=== PATIENT | male | born 1980 ===

== ENCOUNTER 2017-02-09 11:57 | Inpatient (IN) ==
[~2017-02-09 11:57] MED LIST: ACETAMINOPHEN 325 MG TABLET PO PRN; DEXTROSE 50% 25 GM/50 ML VIAL IV PRN; GLUCAGON 1 MG VIAL IM PRN; ONDANSETRON 4 MG/2 ML VIAL IV PRN
[2017-02-09] MEDS ORDERED: SODIUM CHLORIDE 0.45% 1,000 ML IV SCH (12:00)
[2017-02-09 13:02] LABS: Basophils % 0.1 % (0.0-0.8); Eosinophils % 0.2 % (0.00-10.9); Hematocrit 27.7 VOL% (42.0-52.0); Hemoglobin 9.7 GM/DL (14.0-18.0); Immature Granulocytes % 0.9 %; Immature Granulocytes Absolute 0.07 #; Lymphocytes # 0.5 10*3/uL (1.4-4.0); Lymphocytes % 5.5 % (21.2-54.2); Mean Corpuscular Hemoglobin 31 PG (27-34); Mean Corpuscular Volume 87.7 FL (87-102); Mean Platelet Volume 11.6 FL (9.6-12.0); Monocytes # 0.2 10*3/uL (0.11-0.8); Monocytes % 2.6 % (1.7-12.7); Neutrophils # 7.4 10*3/uL (1.4-7.4); Neutrophils % 90.7 % (38.7-73.9); Platelet Count 153 T/CUMM (130-400); Red Blood Count 3.16 MC/CUMM (3.8-5.5); Red Cell Distribution Width 11.9 % (9.3-17.3); White Blood Count 8.1 T/CUMM (4-12)
[2017-02-09 13:42] LABS: Alanine Aminotransferase 18 U/L (16-61); Albumin 2.2 G/DL (3.4-5.0); Alkaline Phosphatase 170 U/L (45-117); Aspartate Amino Transferase 15 U/L (0-37); Bilirubin,Total < 0.39 MG/DL (0.2-1.0); Blood Urea Nitrogen 41 MG/DL (7-18); Calcium 7.3 MG/DL (8.5-10.1); Osmolality,Calculated 297.8 MOS/KG (273-304); Potassium 4.2 MMOL/L (3.5-5.1); Sodium 130 MMOL/L (136-145); Total Protein 5.2 G/DL (6.4-8.3)
[2017-02-09 13:49] LABS: Glucose 600 MG/DL (74-106)
[2017-02-09] MEDS ORDERED: INSULIN LISPRO 100 UNIT/ML SUBCUT ONE ×2 (14:23→14:31)
[2017-02-09] MEDS ORDERED: SODIUM CHLORIDE 0.9% 1,000 ML IV ONE (14:23)
[2017-02-09] MEDS: INSULIN NPH 100 UNIT/ML SUBCUT SCH ×2 (15:34→17:02)
--- NOTE | 2017-02-09 15:35 | General Surg History&Physical ---
Assessment and Plan - Time spent with patient Time spent with patient: Less than 30 minutes (1) Necrotizing fasciitis Status: Acute Assessment and plan: Necrotizing fasciitis of the perineum and left groin with blistering and obvious tissue loss. By history, this has advanced since he was seen at the [facility] emergency room last evening and he has now hyperglycemic with glucoses in the 500-600 range and blood pressure low normal. This appears to be aggressive and progressing infection, and he needs OR debridement this evening in order to get control of this serious infection. We will plan to take him to surgery tonight and open/drain the area with debridement of nonviable tissue. Dr. Carlin has discussed this with the patient and his significant other, including the fact that this will leave a significant skin defect in this area. Current Visit: Yes (2) Uncontrolled diabetes mellitus Status: Acute Assessment and plan: Type 2 diabetes uncontrolled. Appreciate hospital medicine assistance in helping us with aggressive lowering his glucose and postop management. This is a very serious and progressive infection, and we should see improvement once we can get the area drained and the necrotic tissue removed. Current Visit: Yes Qualifiers: Diabetes mellitus type: type 2 (3) Acute renal failure Status: Acute Assessment and plan: Again, will appreciate hospital medicine helping us follow and manage. We will get pharmacy and therapeutics to help with renal dosing and watch his trends once we get the infection under control; he may need nephrology consult as well , as we do not know what his baseline renal function was pre-infection. Current Visit: Yes History of Present Illness Chief complaint: Abscess of the perineum History of present illness: Mr. Rivas is a 36 year old male Home Medications Medication Instructions Recorded Confirmed Type Insulin Aspart [NovoLOG FlexPen] 5 unit SUBCUT TID W/MEALS 08/03/16 02/09/17 History Insulin Detemir [Levemir FlexPen] 35 unit SUBCUT BEDTIME 08/03/16 02/09/17 History glipiZIDE [Glipizide Xl] 10 mg PO DAILY 08/03/16 02/09/17 History Aspirin EC Tab 81 mg PO DAILY tablet 08/06/16 02/09/17 Rx Carvedilol [Coreg] 3.125 mg PO BID tablet 08/06/16 02/09/17 Rx Gabapentin Cap/Tab [Neurontin 100 mg PO BEDTIME capsule 08/06/16 02/09/17 Rx Cap/Tab] Lisinopril [Prinivil] 10 mg PO DAILY tablet 08/06/16 02/09/17 Rx Simvastatin [Zocor] 20 mg PO BEDTIME tablet 08/06/16 02/09/17 Rx Allergies Allergy/AdvReac Type Severity Reaction Status Date / Time No Known Allergies Allergy Unverified 08/03/16 17:57 Medical,Surgical,& Family Hx - Medical History Cardio: History of: Hypertension Endocrine: History of: Diabetes Mellitus (IDDM) Other: History of: Skin Problems (skin graft to Left leg 8 years ago) - Surgical History Thoracic Surgeries: Patient denies;: Organ Transplant, Lobectomy Neurologic Surgeries: Patient denies: Neurologic Surgery - Family History Family History: Reports;: Family Diabetes, Family Heart Disease - Social History Smoking Status: Smoker, status unknown Frequency of Alcohol Use: None Type of Drug Use: None Exam - Constitutional Vitals: Period Temp Pulse Resp BP Sys/Herron Pulse Ox Last 24 Hr 97.5 F 88 16 90-99/45-60 99 General appearance: mild distress - Head Head exam: Present: normocephalic - Eye Eye exam: Present: EOMI. Absent: periorbital swelling Pupils: Present: ESTHER - ENT Mouth exam: Present: normal external inspection, normal voice, dry mucosa, other (No gross oral lesions noted.) - Neck Neck exam: Present: trachea midline. Absent: lymphadenopathy - Respiratory Respiratory exam: Present: clear to auscultation bilaterally - Cardiovascular Cardiovascular exam: Present: RRR - GI/Abdominal GI/Abdominal exam: Present: hypoactive bowel sounds, soft. Absent: tenderness - Anus/Rectum Anus/Rectum: other (Anus is normally positioned. To the left of the anal verge is mild induration and erythematous change that extends onto the perineum anteriorly toward the scrotum. This involves the base of the scrotum, perineum , and into the left groin, where there is a 1-2 cm indurated mass-effect, and approximately 10 x 4 cm grossly necrotic, foul-smelling indurated tissue present. There are small vesicles present on the surface. There is no localized area of fluctuance, but the entire devascularized area is slightly boggy.) Quality Measures - VTE Contraindication to Pharmacological VTE Prophylaxis: High Risk of Bleeding - Stroke Symptom Onset Unknown: No Results - Labs CBC & BMP: 02/09/17 12:51 02/09/17 14:23 Lab Results: I have reviewed the past 24 hour labs (H&H and POC glucose noted; creatinine elevated.)
[2017-02-09] MEDS: SODIUM CHLORIDE 0.9% 1,000 ML IV SCH (16:00)
[2017-02-09] MEDS ORDERED: LIDOCAINE 1%/EPI INJ 20 ML VIAL ONE (16:09)
[2017-02-09] MEDS ORDERED: BUPIVACAINE 0.25% 50 ML VIAL ONE (16:09)
--- NOTE | 2017-02-09 16:13 | Hospitalist Consult Note ---
<Bradley Ayala - Last Filed: 02/09/17 16:09> Assessment and Plan (1) Necrotizing fasciitis Status: Acute Assessment and plan: The has been seen and evaluated by surgery. OR debridement scheduled for tonight. Current Visit: Yes (2) Uncontrolled diabetes mellitus Status: Acute Assessment and plan: The patient's glucose levels were grossly elevated at the time of presentation; ranging from 500-600. We will obtain hemoglobin A1c, and start Accu-Cheks with sliding scale coverage. The patient reports usual medical compliance however; I feel that this is not the case. 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 We will gently rehydrate; and monitor blood pressures closely. We will hold all antihypertensive agents at this time. Current Visit: No Qualifiers: Hypertension type: essential hypertension Qualified Code(s): I10 - Essential (primary) hypertension History of Present Illness - Consult Narrative Reason for consult: Medical management History of present illness: This is a chronically ill 36-year-old male that presented to [facility] as a direct admission from Dr. Morrell's office for the evaluation of an abscess involving the perineum. The patient has an extensive medical history significant for hypertension, insulin-dependent diabetes mellitus, diabetic neuropathy, and hyperlipidemia. She has a surgical history significant for skin graft to the left lower leg. The patient reported the onset of the above symptoms 4 days prior to presentation. He noticed that he had a "bump" on his right buttocks. He reports that he watch the area carefully ; however he noted that the area started to extend and became painful. He attempted to manage the pain at home until it became unbearable. He presented to the [facility] this morning for further evaluation. He was seen and evaluated there and the ER physician Dr. Tyler contacted Dr. Soto's office to arrange evaluation. The patient was subsequently admitted as a direct admission under the services of Dr. Morrell for further evaluation. Hospital medicine was requested to assist in the medical management of the patient during the clinical encounter. CC: Shan Carlin MD - Home Medications and Allergies Home Medications: Home Medications Medication Instructions Recorded Confirmed Type Insulin Aspart [NovoLOG FlexPen] 5 unit SUBCUT TID W/MEALS 08/03/16 02/09/17 History Insulin Detemir [Levemir FlexPen] 35 unit SUBCUT BEDTIME 08/03/16 02/09/17 History glipiZIDE [Glipizide Xl] 10 mg PO DAILY 08/03/16 02/09/17 History Aspirin EC Tab 81 mg PO DAILY tablet 08/06/16 02/09/17 Rx Carvedilol [Coreg] 3.125 mg PO BID tablet 08/06/16 02/09/17 Rx Gabapentin Cap/Tab [Neurontin 100 mg PO BEDTIME capsule 08/06/16 02/09/17 Rx Cap/Tab] Lisinopril [Prinivil] 10 mg PO DAILY tablet 08/06/16 02/09/17 Rx Simvastatin [Zocor] 20 mg PO BEDTIME tablet 08/06/16 02/09/17 Rx Allergies/Adverse Reactions: Allergies Allergy/AdvReac Type Severity Reaction Status Date / Time No Known Allergies Allergy Unverified 08/03/16 17:57 Medical,Surgical,& Family Hx - Medical History Cardio: History of: Hypertension Endocrine: History of: Diabetes Mellitus (IDDM) Other: History of: Skin Problems (skin graft to Left leg 8 years ago) - Surgical History Thoracic Surgeries: Patient denies;: Organ Transplant, Lobectomy Neurologic Surgeries: Patient denies: Neurologic Surgery - Family History Family History: Reports;: Family Diabetes, Family Heart Disease - Social History Smoking Status: Smoker, status unknown Frequency of Alcohol Use: None Type of Drug Use: None 12 point system: reviewed and no additional remarkable complaints except as stated Exam - Constitutional Vitals: Period Temp Pulse Resp BP Sys/Herron Pulse Ox Last 24 Hr 97.5 F 88 16 90-99/45-60 99 General appearance: normal weight, no acute distress - Head Head exam: Present: normal inspection, normocephalic, atraumatic - Eye Eye exam: Present: EOMI Pupils: Present: ESTHER, normal accommodation - ENT ENT exam: Present: normal exam, normal external ear exam, normal oropharynx - Neck Neck exam: Present: normal inspection. Absent: lymphadenopathy, meningismus, tenderness, thyromegaly - Respiratory Respiratory exam: Present: clear to auscultation bilaterally. Absent: rales, rhonchi, stridor, wheezes - Cardiovascular Cardiovascular exam: Present: regular rate and rhythm. Absent: carotid bruit, diastolic murmur, gallop, JVD, rubs, systolic murmur - GI/Abdominal GI/Abdominal exam: Present: normal bowel sounds, soft, other (Gross edema noted extended from the right buttock involving the scrotum; multiple open areas noted with malodorous drainage) - Extremities Exam Extremities exam: Present: normal inspection, normal capillary refill, full ROM. Absent: edema (Edema noted to the right upper thigh) - Back Exam Back exam: Present: normal inspection - Neurological Exam Neurological exam: Present: alert, oriented X3, CN II-XII intact - Psychiatric Psychiatric exam: Present: normal affect, normal mood - Skin Skin exam: Present: normal color, warm, dry Results - Labs CBC & BMP: 02/09/17 12:51 02/09/17 14:23 Lab Results: I have reviewed the past 24 hour labs Quality Measures - VTE Contraindication to Pharmacological VTE Prophylaxis: High Risk of Bleeding - Stroke Symptom Onset Unknown: No <Clay Marie - Last Filed: 02/09/17 17:29> History of Present Illness - Consult Narrative History of present illness: Patient seen and examined by me independently of ASHELY Ayala, agree with history , assessment and plan as documented. Patient being admitted to the surgery service for abscess, plan is for surgery today. Glucoses elevated to 600s. Will start NPH 20 units BID and SSI. Thanks for the consult, will continue to follow. CC: Shan Carlin MD Exam - Constitutional Vitals: Period Temp Pulse Resp BP Sys/Herron Pulse Ox Last 24 Hr 97.5 F 88 16 90-99/45-60 99 Results - Labs CBC & BMP: 02/09/17 12:51 02/09/17 14:23
[2017-02-09 16:51] LABS: Band Neutrophils 15 % (0-10); Lymphocytes 9 % (20-55); Platelet Estimate Normal; Segmented Neutrophils 76 % (50-85); Total Cells Counted 100
[2017-02-09 16:52] LABS: Burr Cells Few; Poikilocytosis Slight
[2017-02-09] MEDS ORDERED: ONDANSETRON 4 MG/2 ML VIAL IV PRN ×2 (18:45→19:25)
[2017-02-09] MEDS ORDERED: CHLORHEXIDINE 4% SOLN 118 ML BOTTLE TOP ONE (18:53)
[2017-02-09] MEDS ORDERED: VANCOMYCIN (NICU) 1,000 MG in SYRINGE 1 EACH IV PRN (19:00)
--- NOTE | 2017-02-09 19:08 | Operative Note ---
Date of procedure: 02/09/17 Pre-op diagnosis: Abscess of the perineum Post-op diagnosis: other (Abscess peritoneum with extensive necrotizing fasciitis of the perineum and scrotum) Procedure: Operative note: Preoperative diagnosis: Abscess of the left perineum with extension to the scrotum and necrotic skin changes Postoperative diagnosis: Necrotizing fasciitis of the peritoneum and scrotum Procedure: Extensive excisional debridement of skin of the perineum and of the scrotum and of deep necrotic subcutaneous tissue as well as fascia of the scrotum Surgeon Dr. Carlin Mortgage Operations Manager Germania Christina, SOC[employer] ACNP Anesthesia General tracheal Brief history: 36-year-old diabetic male who described having a small tender bump area in the left perineal area on Thursday it got progressively worse and was seen Thursday and refused hospitalization at that time. He is given some Rocephin and then brought back to [facility] Thursday morning. This morning when we were called and asked to take patient in transfer because of extensive necrotic changes in his perineal area. When we saw that there was necrotic changes in the perineal area and by the time we got him to surgery there was changes at the base of the scrotum now. Procedure: With patient in the dorsolithotomy position prepped and draped in sterile fashion timeout and antibiotics completed approaches area of the scrotal perineal area. Had extensive necrotic looking tissue in the left perineal area that extended into the median raphae up towards the and into the scrotal area. I took a knife and made an incision through the skin subtenons tissue perineal area and found a large amount of some purulent material as well as necrotic fatty tissue and skin. I did take some swab cultures at this time and I begin to a do some extensive debridement of the necrotic skin around the perineal area and extended into the scrotum. This is continued to extend and progress out skin clinton with necrotic skin edges and the necrotic fatty tissue underneath. I continue to debride that necrotic fatty tissue in the base of this wound in the perineal area finding some deep extension towards the anal area at this point. I debrided as much as I could possibly get at this time leaving a large open wound and then use electrocauterization control any bleeding. I debrided until I thought I was around beyond the area of infection. I was trying to preserve some skin so I was taken some necrotic fatty tissue off the underside of the skin but this may compromise that at some point. At that time I then extended the incision up into the scrotal area and had begin to debride a lot of scrotal skin that was necrotic at this time. There was necrotic scrotal fascia and there and I carefully begin to debride that with the testicles almost completely exposed but not completely. I debrided under the scrotal skin and above it to try to get beyond this area of infection in the hopes that we would not have much more to do. We debrided until we had pretty clear his wounds and excellent drainage. We have now a large open scrotal area with the testicles almost exposed and extending wound that extends down towards the left gluteal perineal area. We now have a wound that measures 24 x 4 x 9 cm in size. At that point would begin to dress it with Dakin's with fluffs and bulky dressings and the like to take the patient to the ICU at this point. As extensive necrotizing fasciitis on this area and will have to get him extensive antibiotics as well as consider and see if we can get him to HBO therapy. Estimated blood loss 50-60 cc Sponge count correct 2 Drains none Complications none Condition critical but stable Anesthesia: ARSALAN Surgeon / Physician: Shan Carlin Mortgage Operations Manager: Germania Christina Estimated blood loss: other (50 cc) Specimens: other (Tissue for culture and pathology) Condition: critical Disposition: ICU Results - Labs CBC & BMP: 02/09/17 12:51 02/09/17 14:23 Discharge Plan - Discharge Medications No Action Insulin Aspart [NovoLOG FlexPen] 5 unit SUBCUT TID W/MEALS Insulin Detemir [Levemir FlexPen] 35 unit SUBCUT BEDTIME Carvedilol [Coreg] 3.125 mg PO BID tablet Gabapentin Cap/Tab [Neurontin Cap/Tab] 100 mg PO BEDTIME capsule Lisinopril [Prinivil] 10 mg PO DAILY tablet Simvastatin [Zocor] 20 mg PO BEDTIME tablet glipiZIDE [Glipizide Xl] 10 mg PO DAILY Aspirin EC Tab 81 mg PO DAILY tablet - Follow Up or Referral - Forms/Instructions
--- NOTE | 2017-02-09 19:15 | Anesthesia Post-Op ---
Anesthesia Post OP - Post Ansesthetic Evaluation Patient seen in post op: Yes Resp: within normal limits CV: within normal limits Mental: within normal limits Temp: within normal limits [id number]: within normal limits Nausea and Vomiting: within normal limits Pain: within normal limits
[2017-02-09] MEDS ORDERED: fentaNYL 100 MCG/2 ML VIAL ONE (19:23)
[2017-02-09] MEDS ORDERED: KETOROLAC 30 MG/1 ML VIAL ONE (19:23)
[2017-02-09] MEDS ORDERED: METOCLOPRAMIDE 10 MG/2 ML VIAL ONE (19:23)
[2017-02-09] MEDS ORDERED: MIDAZOLAM 2 MG/2 ML VIAL ONE (19:23)
[2017-02-09] MEDS ORDERED: ONDANSETRON 4 MG/2 ML VIAL ONE (19:23)
[2017-02-09] MEDS ORDERED: PROPOFOL 200 MG/20 ML VIAL IV ONE (19:24)
[2017-02-09] MEDS ORDERED: HYDROmorphone 2 MG/1 ML VIAL IV PRN (19:25)
[2017-02-09] MEDS ORDERED: LACTATED RINGERS 1,000 ML IV SCH (19:30)
[2017-02-09 19:33] LABS: Apearance,Urine Slightly Hazy (Clear); Bacteria,Urine Few /HPF (Few); Bilirubin,Urine Negative (Negative); Blood, Urine Moderate mg/dL (Negative); Glucose,Urine (UA) >=500 mg/dL (Negative); Ketones,Urine Negative (Negative); Nitrite,Urine Negative (Negative); Protein,Urine 100 MG/DL; RBC,Urine 1 /HPF (0-4); Squamous Epithelial Cell,Urine Occasional /HPF (0-10); Urine Color Yellow (Yellow); Urine Specific Gravity 1.015 (1.001-1.035); Urine Urobilinogen < 2.0 EU/DL (0.2-1.0); WBC,Urine 15 /HPF (0-6); White Blood Cell Casts,Urine 4 /LPF (<1)
[2017-02-09] MEDS: INSULIN LISPRO 100 UNIT/ML SUBCUT SCH ×2 (19:52→22:06)
[2017-02-09] MEDS ORDERED: VANCOMYCIN INJ 1,250 MG in SODIUM CHLORIDE 0.9% 250 ML IV ONE (20:00)
[2017-02-09] MEDS ORDERED: LEVOFLOXACIN INJ 500 MG in PREMIX 1 EACH IV ONE (20:00)
[2017-02-09 20:03] LABS: Hematocrit 24.9 VOL% (42.0-52.0); Hemoglobin 8.6 GM/DL (14.0-18.0)
[2017-02-09] MEDS: KETOROLAC 15 MG/1 ML VIAL IV SCH (20:48)
[2017-02-09] MEDS: DOCUSATE SODIUM 100 MG CAPSULE PO SCH (21:48)
[2017-02-09] MEDS ORDERED: SEVOFLURANE 1 UNIT/15 MINUTE INH ONE (23:22)
[2017-02-09] MEDS: PIPERACILLIN/TAZOBACTAM 3,375 MG in SODIUM CHLORIDE 0.9% 100 ML IV SCH (23:46)
[2017-02-10] MEDS: SODIUM CHLORIDE 0.9% 1,000 ML IV SCH ×4 (01:51→14:54)
[2017-02-10] MEDS: KETOROLAC 15 MG/1 ML VIAL IV SCH ×3 (03:25→14:06)
[2017-02-10] MEDS: PIPERACILLIN/TAZOBACTAM 3,375 MG in SODIUM CHLORIDE 0.9% 100 ML IV SCH ×3 (06:40→22:28)
[2017-02-10 06:43] LABS: Basophils % 0.3 % (0.0-0.8); Eosinophils % 0.5 % (0.00-10.9); Hematocrit 32.7 VOL% (42.0-52.0); Immature Granulocytes % 1.3 %; Lymphocytes # 0.9 10*3/uL (1.4-4.0); Lymphocytes % 11.7 % (21.2-54.2); Mean Corpuscular HGB Conc 34.6 GM/DL (32-36); Mean Corpuscular Hemoglobin 31 PG (27-34); Mean Corpuscular Volume 89.3 FL (87-102); Mean Platelet Volume 11.5 FL (9.6-12.0); Monocytes # 0.5 10*3/uL (0.11-0.8); Monocytes % 5.9 % (1.7-12.7); Neutrophils # 6.1 10*3/uL (1.4-7.4); Neutrophils % 80.3 % (38.7-73.9); Platelet Count 152 T/CUMM (130-400); Red Blood Count 3.66 MC/CUMM (3.8-5.5); Red Cell Distribution Width 12.5 % (9.3-17.3); White Blood Count 7.6 T/CUMM (4-12)
[2017-02-10 06:44] LABS: Hemoglobin 11.3 GM/DL (14.0-18.0)
[2017-02-10 07:02] LABS: Band Neutrophils 2 % (0-10); Burr Cells Slight; Eosinophils 2 % (0-10); Hypochromasia 1+; Lymphocytes 13 % (20-55); Platelet Estimate Adequate; Segmented Neutrophils 76 % (50-85); Total Cells Counted 100
[2017-02-10 07:29] LABS: Albumin 1.7 G/DL (3.4-5.0); Bilirubin,Total 0.4 MG/DL (0.2-1.0); Calcium 6.8 MG/DL (8.5-10.1); Magnesium 2.2 MG/DL (1.8-2.4); Osmolality,Calculated 287.7 MOS/KG (273-304); Phosphorous 2.9 MG/DL (2.5-4.9); Potassium 3.9 MMOL/L (3.5-5.1); Total Protein 4.5 G/DL (6.4-8.3)
[2017-02-10] MEDS ORDERED: VANCOMYCIN INJ 1,000 MG in SODIUM CHLORIDE 0.9% 250 ML IV PRN (08:00)
--- NOTE | 2017-02-10 08:03 | General Surgery Progress Note ---
Assessment and Plan - Time spent with patient Time spent with patient: Less than 30 minutes (1) Necrotizing fasciitis Status: Acute Assessment and plan: 02/10/2017. Patient's afebrile this morning glucose is down as well as an improvement in his creatinine to 2.5. Did transfuse him in the evening his hematocrit is 32 this morning. Vital signs are more stable at this point. At this time we will go ahead and get infectious disease looking for antibiotics planning at this time. We will also start wound care and see if we do have to go back to surgery for additional debridement. Cultures are pending at this time. I have consulted the wound center for possible HBO on him. Current Visit: Yes Subjective Patient reports: Present: no new complaints, feels better, tolerating liquids well, nausea, afebrile Exam - Constitutional Vitals: Period Temp Pulse Resp BP Sys/Herron Pulse Ox Last 24 Hr 97.5 F-99.3 F 80-107 11-21 81-130/38-65 95-100 General appearance: mild distress - Head Head exam: Present: normal inspection - ENT ENT exam: Present: normal exam - Neck Neck exam: Present: normal inspection - Respiratory Respiratory exam: Present: rales - Cardiovascular Cardiovascular exam: Present: RRR - GI/Abdominal GI/Abdominal exam: Present: hypoactive bowel sounds, soft - Anus/Rectum Anus/Rectum: other (Wound care beginning on the perineal scrotal area) - Back Exam Back exam: Present: normal inspection - Neurological Exam Neurological exam: Present: alert, oriented X3, CN II-XII intact - Skin Skin exam: Present: normal color, warm, dry Results - Labs CBC & BMP: 02/10/17 06:33 02/10/17 06:33 Lab Results: I have reviewed the past 24 hour labs Quality Measures - VTE Contraindication to Pharmacological VTE Prophylaxis: High Risk of Bleeding - Stroke Symptom Onset Unknown: No
--- NOTE | 2017-02-10 08:14 | EKG Report ---
Stationary ECG Study [facility] Test Date: 02/10/2017 6:51:10 AM Pat Name: SHAWN HENRIQUEZ Department: Room: 106 Gender: M Coper Hand: KEENAN : 1980 Requested by: Germania Christina Order Number: [id number] Reading MD: STEPH MASON Intervals [place] Rate: 82 P: 40 WA: 175 QRS: 51 QRSD: 94 T: 32 QT: 342 QTc: 381 Interpretive Statements SINUS RHYTHM Electronically Signed On 02-10-17 11:43:42 CDT by STEPH MASON [email or web address]
[2017-02-10] MEDS: SODIUM HYPOCHLORITE 0.25% IRRIG 473 ML BOTTLE TOP SCH (08:50)
[2017-02-10] MEDS: HYDROmorphone 2 MG/1 ML VIAL IV PRN (08:55)
[2017-02-10] MEDS: INSULIN NPH 100 UNIT/ML SUBCUT SCH (09:37)
[2017-02-10] MEDS: INSULIN LISPRO 100 UNIT/ML SUBCUT SCH ×4 (09:37→21:21)
[2017-02-10] MEDS: PANTOPRAZOLE 40 MG TABLET PO SCH (09:38)
[2017-02-10] MEDS: ENOXAPARIN 40 MG/0.4 ML SYRINGE SUBCUT SCH (09:38)
[2017-02-10] MEDS: DOCUSATE SODIUM 100 MG CAPSULE PO SCH ×2 (09:38→21:20)
[2017-02-10] MEDS ORDERED: INSULIN NPH 100 UNIT/ML SUBCUT SCH (09:59)
--- NOTE | 2017-02-10 10:03 | Hospitalist Progress Note ---
Assessment and Plan (1) Acute renal failure Status: Acute Assessment and plan: 1)KAREN- improving with IVF. Continue with NS at 150 for now and watch creatinine. 2)uncontrolled DM- glucose now 169 this morning. Decrease NPH to 10U BID and continue with SSI. May need more as his diet advances. 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 He is on a clear liquid diet. He takes 2 kinds of insulin at home he says but doesn't know how much or what kinds. He does not have nausea or vomiting. Exam - Constitutional Vitals: Period Temp Pulse Resp BP Sys/Herron Pulse Ox Last 24 Hr 97.5 F-99.3 F 80-107 11-21 81-130/38-65 95-100 General appearance: normal weight, no acute distress - Respiratory Respiratory exam: Present: clear to auscultation bilaterally - Cardiovascular Cardiovascular exam: Present: regular rate and rhythm Results - Labs CBC & BMP: 02/10/17 06:33 02/10/17 06:33 Lab Results: I have reviewed the past 24 hour labs Quality Measures - VTE Contraindication to Pharmacological VTE Prophylaxis: High Risk of Bleeding - Stroke Symptom Onset Unknown: No
[2017-02-10] MEDS: CLINDAMYCIN INJ 600 MG in PREMIX 1 EACH IV SCH ×2 (10:20→16:38)
[2017-02-10 10:53] LABS: Hematocrit 31.1 VOL% (42.0-52.0); Hemoglobin 10.9 GM/DL (14.0-18.0)
--- NOTE | 2017-02-10 15:06 | XRay Report ---
XR chest 1V portable Indication: Postoperative necrotizing fasciitis Comparison: September 2008 Findings: The heart and mediastinum are normal in size and configuration. The pulmonary vascularity is normal in caliber. No lung infiltrates, effusions, pneumothorax or other abnormality is demonstrated. Impression: Normal chest x-ray PROCEDURE INTERPRETED AT [facility] DEPARTMENT OF RADIOLOGY Final Report Signed by: Dr. Nir Christiansen
--- NOTE | 2017-02-10 15:37 | Infectious Disease Consult ---
Assessment and Plan (1) Acute renal failure Status: Acute Assessment and plan: Probably associated sepsis. Renal function somewhat better today. Continue to watch closely on vancomycin. Current Visit: Yes (2) Necrotizing fasciitis Status: Acute Assessment and plan: This is an extensive infection involving the scrotal area perineum and intergluteal area. No doubt polymicrobial infection with source not fully controlled yet given still foul odor coming from the area. We need to monitor for possibility of associated bacteremia. Recommend agents: 1. Add clindamycin 2. Agree with empiric Zosyn as well as Levaquin in case there are organisms such as Pseudomonas 3. Agree with empiric vancomycin, dosed intermittently depending on levels given his acute renal failure. 4. Closely monitor renal function; if there is some progressive worsening then we would need to replace vancomycin Thank you very much for the consult. Will follow. Current Visit: Yes (3) Uncontrolled diabetes mellitus Status: Acute Assessment and plan: Severely uncontrolled with an A1c of more than 15.5%. This is the main risk factor for his necrotizing fasciitis. Patient informed me importance of better diabetes control to avoid such serious competitions in the future. 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 Mr. Rivas is a 36 year old male with diabetes which is uncontrolled who was relatively well until the weekend when he developed a papule to left groin area. He got bigger quite rapidly and he sought medical attention but apparently declined admission to [facility]. However the pain in the area worsened significantly and he finally went back for medical care and he was felt to have necrotizing fasciitis and so was transferred to [place]. Patient required emergency surgery with wide debridement of necrotic tissue. I am asked to assist with antibiotic management. He had mild chills but no fever. Today he is feeling a bit better than when he first came in with less pain. Home Medications Medication Instructions Recorded Confirmed Type Insulin Aspart [NovoLOG FlexPen] 5 unit SUBCUT TID W/MEALS 08/03/16 02/09/17 History Insulin Detemir [Levemir FlexPen] 35 unit SUBCUT BEDTIME 08/03/16 02/09/17 History glipiZIDE [Glipizide Xl] 10 mg PO DAILY 08/03/16 02/09/17 History Aspirin EC Tab 81 mg PO DAILY tablet 08/06/16 02/09/17 Rx Carvedilol [Coreg] 3.125 mg PO BID tablet 08/06/16 02/09/17 Rx Gabapentin Cap/Tab [Neurontin 100 mg PO BEDTIME capsule 08/06/16 02/09/17 Rx Cap/Tab] Lisinopril [Prinivil] 10 mg PO DAILY tablet 08/06/16 02/09/17 Rx Simvastatin [Zocor] 20 mg PO BEDTIME tablet 08/06/16 02/09/17 Rx Allergies Allergy/AdvReac Type Severity Reaction Status Date / Time No Known Allergies Allergy Unverified 08/03/16 17:57 12 point system: reviewed and no additional remarkable complaints except as stated (Per HPI) Medical,Surgical,& Family Hx - Medical History Cardio: History of: Hypertension Endocrine: History of: Diabetes Mellitus (IDDM) Other: History of: Skin Problems (skin graft to Left leg 8 years ago) - Surgical History Thoracic Surgeries: Patient denies;: Organ Transplant, Lobectomy Neurologic Surgeries: Patient denies: Neurologic Surgery - Family History Family History: Reports;: Family Diabetes, Family Heart Disease - Social History Smoking Status: Unknown if ever smoked Frequency of Alcohol Use: None Type of Drug Use: None Infectious Disease Exam H&P - Constitutional Vitals: Vital Signs Temp Pulse Resp BP Pulse Ox 97.9 F 89 22 125/92 98 02/10/17 11:00 02/10/17 14:00 02/10/17 14:00 02/10/17 14:00 02/10/17 14:00 Intake and Output 02/09/17 02/10/17 02/10/17 23:59 07:59 15:59 Intake Total 2480 / 2480 1670 / 1670 1230 / 1230 Output Total 2200 / 2200 510 / 510 Balance 280 / 280 1670 / 1670 720 / 720 Intake: IV 2480 / 2480 970 / 970 150 / 150 Cleocin Inj 600 mg In 50 / 50 Premix 1 Each @ 100 mls/ hr IV Q8H [facility] Rx#: [id number] Lr 1,000 ml @ 20 mls/hr 450 / 450 550 / 550 IV .Q24H [facility] Rx#: [id number] Levaquin Inj 500 mg In 100 / 100 Premix 1 Each @ 100 mls/ hr IV ONCE ONE Rx#: [id number] Zosyn 3,375 mg In Ns 100 100 / 100 100 / 100 ml @ 25 mls/hr IV Q8H [facility] Rx#:[id number] Ns 1,000 ml @ 150 mls/hr 1930 / 1930 70 / 70 IV .Q6H40M [facility] Rx#: [id number] Vancomycin Inj 1,000 mg 250 / 250 In Ns 250 ml @ 250 mls/hr IV ONCE ONE Rx#: [id number] Oral 1080 / 1080 Blood Product 700 / 700 Red Blood Cells Leuko Red 350 / 350 Unit [id number] Red Blood Cells Leuko Red 350 / 350 Unit [id number] Output: Urine 2200 / 2200 510 / 510 Other: Voiding Method Indwelling Catheter Indwelling Catheter Indwelling Catheter # Voids 25 30 # Bowel Movements 1 Weight 94.574 kg Patient Weight 02/10/17 23:59 Weight 94.574 kg Exam: General: Patient relatively comfortable, looks better than expected HEENT: Mucous membranes pink and moist, anicteric acyanotic, ESTHER, no oropharyngeal exudates Neck: Supple, no thyroid gland enlargement, no lymphadenopathy Respiratory system: Breath sounds vesicular, no crepitations or wheezes Cardiovascular: Normal S1 and S2, no murmurs appreciated Abdomen: Normal bowel sounds, soft nontender throughout, no organomegaly or mass Genitourinary: No suprapubic pain or bladder distention, clear urine from Dumont catheter. Wound examined with wound care this morning and significant findings confined to the left groin and perineal area there is a very large surgical wound with scant necrotic tissue, there is a bit of a foul odor coming from the area but overall no significant purulent drainage and there is no surrounding induration or significant tenderness on palpation Extremities: no edema Skin: No rash Reports - Labs CBC & BMP: 02/10/17 10:46 02/10/17 06:33 Labs: Laboratory Results - last 24 hr 02/09/17 02/09/17 02/09/17 12:49 12:51 15:44 WBC RBC Hgb Hct MCV MCH MCHC RDW Plt Count MPV Neut % (Auto) Lymph % (Auto) [place] % (Auto) Eos % (Auto) Baso % (Auto) Neut # (Auto) Lymph # (Auto) [place] # (Auto) Eos # (Auto) Baso # (Auto) Total Counted 100 Immature Gran % Nucleated RBC % Immature Gran # Segmented Neutrophils 76 Band Neutrophils 15 H Lymphocytes 9 L Monocytes Eosinophils Nucleated RBCs # Platelet Estimate Normal Hypochromasia Poikilocytosis Slight [place] Cells Few Sodium Potassium Chloride Carbon Dioxide Anion Gap BUN Creatinine GFR Calculation BUN/Creatinine Ratio Glucose POC Glucose > 500 H* Hemoglobin A1c > 15.5 H Calculated Osmolality Calcium Phosphorus Magnesium Total Bilirubin AST ALT Alkaline Phosphatase Total Protein Albumin Globulin Albumin/Globulin Ratio Urine Color Urine Appearance Urine pH Ur Specific [place] Urine Protein Urine Glucose (UA) Urine Ketones Urine Blood Urine Nitrate Urine Bilirubin Urine Urobilinogen Urine Leukocytes Urine RBC Urine WBC Ur Squamous Epith Cells Urine Bacteria WBC Casts Ur Culture Indicated? Blood Type Antibody Screen Crossmatch 02/09/17 02/09/17 02/09/17 19:16 19:20 19:56 WBC RBC Hgb 8.6 L Hct 24.9 L MCV MCH MCHC RDW Plt Count MPV Neut % (Auto) Lymph % (Auto) [place] % (Auto) Eos % (Auto) Baso % (Auto) Neut # (Auto) Lymph # (Auto) [place] # (Auto) Eos # (Auto) Baso # (Auto) Total Counted Immature Gran % Nucleated RBC % Immature Gran # Segmented Neutrophils Band Neutrophils Lymphocytes Monocytes Eosinophils Nucleated RBCs # Platelet Estimate Hypochromasia Poikilocytosis Ramakrishna Cells Sodium Potassium Chloride Carbon Dioxide Anion Gap BUN Creatinine GFR Calculation BUN/Creatinine Ratio Glucose POC Glucose 436 H Hemoglobin A1c Calculated Osmolality Calcium Phosphorus Magnesium Total Bilirubin AST ALT Alkaline Phosphatase Total Protein Albumin Globulin Albumin/Globulin Ratio Urine Color Yellow Urine Appearance Slightly hazy Urine pH 5.0 Ur Specific [place] 1.015 Urine Protein 100 Urine Glucose (UA) >=500 Urine Ketones Negative Urine Blood Moderate Urine Nitrate Negative Urine Bilirubin Negative Urine Urobilinogen < 2.0 H Urine Leukocytes Negative Urine RBC 1 Urine WBC 15 Ur Squamous Epith Cells Occasional Urine Bacteria Few WBC Casts 4 Ur Culture Indicated? Results to follow Blood Type Antibody Screen Crossmatch 02/09/17 02/09/17 02/09/17 19:56 21:49 22:03 WBC RBC Hgb Hct MCV MCH MCHC RDW Plt Count MPV Neut % (Auto) Lymph % (Auto) [place] % (Auto) Eos % (Auto) Baso % (Auto) Neut # (Auto) Lymph # (Auto) [place] # (Auto) Eos # (Auto) Baso # (Auto) Total Counted Immature Gran % Nucleated RBC % Immature Gran # Segmented Neutrophils Band Neutrophils Lymphocytes Monocytes Eosinophils Nucleated RBCs # Platelet Estimate Hypochromasia Poikilocytosis [place] Cells Sodium Potassium Chloride Carbon Dioxide Anion Gap BUN Creatinine GFR Calculation BUN/Creatinine Ratio Glucose POC Glucose 346 H Hemoglobin A1c Calculated Osmolality Calcium Phosphorus Magnesium Total Bilirubin AST ALT Alkaline Phosphatase Total Protein Albumin Globulin Albumin/Globulin Ratio Urine Color Urine Appearance Urine pH Ur Specific [place] Urine Protein Urine Glucose (UA) Urine Ketones Urine Blood Urine Nitrate Urine Bilirubin Urine Urobilinogen Urine Leukocytes Urine RBC Urine WBC Ur Squamous Epith Cells Urine Bacteria WBC Casts Ur Culture Indicated? Blood Type O POSITIVE O POSITIVE Antibody Screen Negative Crossmatch See Detail 02/10/17 02/10/17 02/10/17 06:33 06:33 10:46 WBC 7.6 RBC 3.66 L Hgb 11.3 L D 10.9 L Hct 32.7 L 31.1 L MCV 89.3 MCH 31 MCHC 34.6 RDW 12.5 Plt Count 152 MPV 11.5 Neut % (Auto) 80.3 H Lymph % (Auto) 11.7 L [place] % (Auto) 5.9 Eos % (Auto) 0.5 Baso % (Auto) 0.3 Neut # (Auto) 6.1 Lymph # (Auto) 0.9 L [place] # (Auto) 0.5 Eos # (Auto) 0.0 Baso # (Auto) 0.0 Total Counted 100 Immature Gran % 1.3 Nucleated RBC % 0.0 Immature Gran # 0.10 Segmented Neutrophils 76 Band Neutrophils 2 Lymphocytes 13 L Monocytes 7 Eosinophils 2 Nucleated RBCs # 0.00 Platelet Estimate Adequate Hypochromasia 1+ Poikilocytosis [place] Cells Slight Sodium 138 Potassium 3.9 Chloride 111 H Carbon Dioxide 18 L Anion Gap 12.9 BUN 38 H Creatinine 2.50 H GFR Calculation 39 BUN/Creatinine Ratio 15.00 Glucose 169 H POC Glucose Hemoglobin A1c Calculated Osmolality 287.7 Calcium 6.8 L Phosphorus 2.9 Magnesium 2.2 Total Bilirubin 0.40 AST 18 ALT 18 Alkaline Phosphatase 121 H Total Protein 4.5 L Albumin 1.7 L Globulin 2.8 Albumin/Globulin Ratio 0.6 L Urine Color Urine Appearance Urine pH Ur Specific [place] Urine Protein Urine Glucose (UA) Urine Ketones Urine Blood Urine Nitrate Urine Bilirubin Urine Urobilinogen Urine Leukocytes Urine RBC Urine WBC Ur Squamous Epith Cells Urine Bacteria WBC Casts Ur Culture Indicated? Blood Type Antibody Screen Crossmatch 02/10/17 11:32 WBC RBC Hgb Hct MCV MCH MCHC RDW Plt Count MPV Neut % (Auto) Lymph % (Auto) [place] % (Auto) Eos % (Auto) Baso % (Auto) Neut # (Auto) Lymph # (Auto) [place] # (Auto) Eos # (Auto) Baso # (Auto) Total Counted Immature Gran % Nucleated RBC % Immature Gran # Segmented Neutrophils Band Neutrophils Lymphocytes Monocytes Eosinophils Nucleated RBCs # Platelet Estimate Hypochromasia Poikilocytosis [place] Cells Sodium Potassium Chloride Carbon Dioxide Anion Gap BUN Creatinine GFR Calculation BUN/Creatinine Ratio Glucose POC Glucose 352 H Hemoglobin A1c Calculated Osmolality Calcium Phosphorus Magnesium Total Bilirubin AST ALT Alkaline Phosphatase Total Protein Albumin Globulin Albumin/Globulin Ratio Urine Color Urine Appearance Urine pH Ur Specific [place] Urine Protein Urine Glucose (UA) Urine Ketones Urine Blood Urine Nitrate Urine Bilirubin Urine Urobilinogen Urine Leukocytes Urine RBC Urine WBC Ur Squamous Epith Cells Urine Bacteria WBC Casts Ur Culture Indicated? Blood Type Antibody Screen Crossmatch - Reports Microbiology: Microbiology 02/09/17 17:50 Tissue Culture - Preliminary Buttock - Left Gram Negative Rods Gram Positive Cocci Gram Stain - Final 02/09/17 15:40 Wound Culture - Preliminary Scrotum Gram Negative Rods Gram Negative Rods#2 Gram Positive Cocci 02/09/17 Unknown Urine Culture - Preliminary Urine,Catheterized No Growth at 12 hours. 02/09/17 17:50 Abscess Culture - Preliminary Buttock - Left Gram Positive Cocci 02/09/17 19:17 MRSA Surveillance Culture - Preliminary Nasal Passage - Both Nares (Mrsa screen) No MRSA isolated. - Diagnostic Findings Procedure: Chest x-ray: report reviewed by me (Normal study)
[2017-02-10] MEDS ORDERED: LEVOFLOXACIN INJ 250 MG in PREMIX 1 EACH IV SCH (16:00)
--- NOTE | 2017-02-10 16:31 | Nephrology Consult Note ---
History of Present Illness Chief complaint: Increased BUN and creatinine History of present illness: Mr. Rivas is a 36 year old male who is admitted yesterday for development of a cellulitis in his perineal area. Patient states this started about 3 days prior to his admission he was associated with some pain. The patient has had incision and drainage of this wound done yesterday. We were asked see the patient for an increased creatinine. The patient's creatinine yesterday was around 3.5 mg/dL today it is down to 2.7 mg/dL. Patient continues on IV fluids with normal saline. The patient denies any problems with kidney failure in the past although review of his records here reveals that his creatinine was slightly elevated about 6 months ago at 1.2-1.5 mg/dL. The patient has a long history of diabetes as well as hypertension. The patient was also taking ibuprofen 3 times a day for the past week for a foot injury he sustained about a week ago. The patient was also taking lisinopril 10 mg daily for his hypertension. The patient had some associated heart palpitations a few days prior to his admission, he also noticed some bumps in his inguinal area several days prior to his admission. ROS: Head -positive headaches ENT - denies sore throat Lymphatics - denies lymphadenopathy Hematology - denies bleeding problems Heart - denies chest pain, he did complain of some palpitations a couple days prior to this admission. Lungs - denies shortness of breath Abdomen - denies abdominal pain Musculoskeletal - denies arthritis, he did have some kind of ankle injury on his left side about a week or so ago which prompted him to take a nonsteroidal anti-inflammatory medication. Skin - denies rash Neurology - denies stroke General - denies fever PE: General: in no acute distress Eyes: Pupils are round and reactive, conjunctivae are clear ENT: Nose is clear, O/P is benign Neck: Supple, no thyromegaly Lymphatics: No cervical, supraclavicular or axillary adenopathy Heart: Regular rate and rhythm, no edema Lungs: Clear to auscultation anteriorly, chest expansion symmetric Abdomen: Soft, normoactive bowel sounds, no hepatomegaly Musculoskeletal: No joint erythema or effusions or joint asymmetry Skin: Normal turgor, normal hydration, no rash Neuro/Psych: Alert and cooperative with fair insight Home Medications Medication Instructions Recorded Confirmed Type Insulin Aspart [NovoLOG FlexPen] 5 unit SUBCUT TID W/MEALS 08/03/16 02/09/17 History Insulin Detemir [Levemir FlexPen] 35 unit SUBCUT BEDTIME 08/03/16 02/09/17 History glipiZIDE [Glipizide Xl] 10 mg PO DAILY 08/03/16 02/09/17 History Aspirin EC Tab 81 mg PO DAILY tablet 08/06/16 02/09/17 Rx Carvedilol [Coreg] 3.125 mg PO BID tablet 08/06/16 02/09/17 Rx Gabapentin Cap/Tab [Neurontin 100 mg PO BEDTIME capsule 08/06/16 02/09/17 Rx Cap/Tab] Lisinopril [Prinivil] 10 mg PO DAILY tablet 08/06/16 02/09/17 Rx Simvastatin [Zocor] 20 mg PO BEDTIME tablet 08/06/16 02/09/17 Rx Allergies Allergy/AdvReac Type Severity Reaction Status Date / Time No Known Allergies Allergy Unverified 08/03/16 17:57 Medical,Surgical,& Family Hx - Medical History Cardio: History of: Hypertension Endocrine: History of: Diabetes Mellitus (IDDM) Other: History of: Skin Problems (skin graft to Left leg 8 years ago) - Surgical History Thoracic Surgeries: Patient denies;: Organ Transplant, Lobectomy Neurologic Surgeries: Patient denies: Neurologic Surgery Additional Surgical History: Tonsillectomy - Family History Family History: Reports;: Family Diabetes, Family Heart Disease - Social History Smoking Status: Former smoker Frequency of Alcohol Use: None Type of Drug Use: None Exam - Vital Signs Vital signs: Period Temp Pulse Resp BP Sys/Herron Pulse Ox Last 24 Hr 97.9 F-99.3 F 80-107 11-22 81-140/38-92 95-100 Results - Labs CBC & BMP: 02/10/17 10:46 02/10/17 06:33 Assessment and Plan (1) Acute renal failure Status: Acute Assessment and plan: This patient's creatinine is improving with IV fluids, I suspect he had an ATN injury related to his necrotizing fasciitis as well as his use of nonsteroidal anti-inflammatory medication and DWIGHT inhibition in the face of this infection. I agree with IV fluids ordered however I will adjust them to give him some bicarbonate for his metabolic acidosis. Current Visit: Yes (2) Metabolic acidosis Status: Acute Current Visit: Yes (3) Necrotizing fasciitis Status: Acute Current Visit: Yes (4) Diabetes Status: Acute Current Visit: No Qualifiers: Diabetes mellitus type: type 2 (5) Hypertension Status: Acute Current Visit: No Qualifiers: Hypertension type: essential hypertension Qualified Code(s): I10 - Essential (primary) hypertension
[2017-02-10] MEDS: SODIUM ACETATE 50 MEQ in SODIUM CHLORIDE 0.45% 1,000 ML IV SCH (17:26)
[2017-02-11] MEDS ORDERED: VANCOMYCIN INJ 1,500 MG in SODIUM CHLORIDE 0.9% 500 ML IV ONE
[2017-02-11] MEDS: SODIUM ACETATE 50 MEQ in SODIUM CHLORIDE 0.45% 1,000 ML IV SCH ×4 (01:41→21:00)
[2017-02-11] MEDS: CLINDAMYCIN INJ 600 MG in PREMIX 1 EACH IV SCH ×3 (03:10→18:25)
[2017-02-11 06:00] LABS: Basophils % 0.1 % (0.0-0.8); Eosinophils # 0.1 10*3/uL (0.0-0.87); Eosinophils % 0.7 % (0.00-10.9); Hematocrit 30.4 VOL% (42.0-52.0); Hemoglobin 10.6 GM/DL (14.0-18.0); Immature Granulocytes % 1.9 %; Immature Granulocytes Absolute 0.13 #; Lymphocytes # 1.4 10*3/uL (1.4-4.0); Lymphocytes % 19.4 % (21.2-54.2); Mean Corpuscular HGB Conc 34.9 GM/DL (32-36); Mean Corpuscular Hemoglobin 31 PG (27-34); Mean Corpuscular Volume 88.9 FL (87-102); Mean Platelet Volume 11.1 FL (9.6-12.0); Monocytes # 0.6 10*3/uL (0.11-0.8); Monocytes % 9.1 % (1.7-12.7); NRBC # 0.02 10*3/uL; Neutrophils # 4.8 10*3/uL (1.4-7.4); Neutrophils % 68.8 % (38.7-73.9); Platelet Count 174 T/CUMM (130-400); Red Blood Count 3.42 MC/CUMM (3.8-5.5); Red Cell Distribution Width 12.8 % (9.3-17.3)
[2017-02-11 06:28] LABS: Calcium 6.6 MG/DL (8.5-10.1); Magnesium 2.3 MG/DL (1.8-2.4); Osmolality,Calculated 282.8 MOS/KG (273-304)
[2017-02-11 06:37] LABS: Band Neutrophils 2 % (0-10); Eosinophils 1 % (0-10); Hypochromasia 1+; Lymphocytes 13 % (20-55); Platelet Estimate Normal; Segmented Neutrophils 75 % (50-85); Total Cells Counted 100
[2017-02-11] MEDS: PIPERACILLIN/TAZOBACTAM 3,375 MG in SODIUM CHLORIDE 0.9% 100 ML IV SCH (07:10)
--- NOTE | 2017-02-11 07:46 | Nephrology Progress Note ---
Nephrology - PN: Subj Interval history: Patient denies shortness of breath. Review of systems GI denies nausea or vomiting physical exam general patient is in no acute distress, he has trace pretibial edema Assessment/plan 1. Acute renal failure-patient's creatinines improved to 1.5 mg /dL we will continue to monitor this 2. Metabolic acidosis-we will continue his sodium acetate infusion, I am going to decrease his IV fluid rate 3. Necrotizing fasciitis continue antibiotics, patient is on vancomycin if this can be stopped in the case that he does not have MRSA grow outitwould probably be a good thing for his kidneys. 4. Diabetes mellitus Exam (PN)-Nephrology - Vital Signs Vital signs: Period Temp Pulse Resp BP Sys/Herron Pulse Ox Last 24 Hr 97.9 F-99.0 F 66-103 12-29 90-142/61-92 95-100 - Lab 02/11/17 05:30 02/11/17 05:30 Most recent lab results Calcium 6.6 MG/DL (8.5-10.1) L 02/11/17 05:30 Phosphorus 2.9 MG/DL (2.5-4.9) 02/10/17 06:33 Magnesium 2.3 MG/DL (1.8-2.4) 02/11/17 05:30 Assessment and Plan (1) Acute renal failure Status: Acute Assessment and plan: This patient's creatinine is improving with IV fluids, I suspect he had an ATN injury related to his necrotizing fasciitis as well as his use of nonsteroidal anti-inflammatory medication and DWIGHT inhibition in the face of this infection. I agree with IV fluids ordered however I will adjust them to give him some bicarbonate for his metabolic acidosis. Current Visit: Yes (2) Metabolic acidosis Status: Acute Current Visit: Yes (3) Necrotizing fasciitis Status: Acute Current Visit: Yes (4) Diabetes Status: Acute Current Visit: No Qualifiers: Diabetes mellitus type: type 2 (5) Hypertension Status: Acute Current Visit: No Qualifiers: Hypertension type: essential hypertension Qualified Code(s): I10 - Essential (primary) hypertension
[2017-02-11] MEDS: INSULIN LISPRO 100 UNIT/ML SUBCUT SCH ×5 (07:55→21:00)
[2017-02-11] MEDS: INSULIN NPH 100 UNIT/ML SUBCUT SCH ×2 (07:56→17:30)
[2017-02-11] MEDS: DOCUSATE SODIUM 100 MG CAPSULE PO SCH ×3 (08:23→21:00)
[2017-02-11] MEDS: PANTOPRAZOLE 40 MG TABLET PO SCH (08:23)
[2017-02-11] MEDS: ENOXAPARIN 40 MG/0.4 ML SYRINGE SUBCUT SCH (08:30)
--- NOTE | 2017-02-11 09:24 | Hospitalist Progress Note ---
Assessment and Plan (1) Acute renal failure Status: Acute Assessment and plan: 1)KAREN- improving with IVF. Continue with NS with acetate at 150 for now and watch creatinine. 2)uncontrolled DM- Glucose colten yesterday as diet was advanced. Increase to 25U NPH BID and continue with q4h SSI. At home he is supposed to be on a total of 50U a day divided btw short and long acting. 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 He is tolerating his soft /full liquid diet. His glucoses remained elevated with frequent requirement for SSI yesterday. Exam - Constitutional Vitals: Period Temp Pulse Resp BP Sys/Herron Pulse Ox Last 24 Hr 97 F-98.9 F 66-103 12-29 90-142/69-92 95-100 General appearance: normal weight, no acute distress - Eye Eye exam: Present: EOMI. Absent: scleral icterus - Respiratory Respiratory exam: Present: clear to auscultation bilaterally - Cardiovascular Cardiovascular exam: Present: regular rate and rhythm - GI/Abdominal GI/Abdominal exam: Present: normal bowel sounds, soft - Extremities Exam Extremities exam: Absent: edema - Skin Skin exam: Present: other (perineum dressed) Results - Labs CBC & BMP: 02/11/17 05:30 02/11/17 05:30 Lab Results: I have reviewed the past 24 hour labs Quality Measures - VTE Contraindication to Pharmacological VTE Prophylaxis: High Risk of Bleeding - Stroke Symptom Onset Unknown: No
[2017-02-11] MEDS: HYDROmorphone 2 MG/1 ML VIAL IV PRN (09:32)
[2017-02-11] MEDS: SODIUM HYPOCHLORITE 0.25% IRRIG 473 ML BOTTLE TOP SCH (10:06)
--- NOTE | 2017-02-11 11:16 | Pathology Report from [facility] ---
[facility] [place] : [id number] PATIENT NAME : Gino Rivas ORDERING DR : KAILEY MODI MD CLINICAL HX: Necrotizing fasciitis POST-OP DX: Same SPECIMEN INFO: Scrotal tissue GROSS DESCRIPTION: The specimen is received in formalin labeled GINO RIVAS and consists of multiple fragments of debrided skin and subcutaneous tissue measuring 13.0 x 7.0 x 5.0 cm in aggregate. [employer] sections submitted in one cassette. DIAGNOSIS FOR GINO RIVAS: SCROTAL TISSUE, I&D: Necrosis, suppuration involving fibrofatty tissue and skeletal muscle. COLLECTED DATE: 02/10/2017 [facility] REPORT DATE: 02/11/2017 ELECTRONICALLY SIGNED BY: Jose Raul Norton M.D. 02/11/2017 - 10:18:22 [facility]
--- NOTE | 2017-02-11 11:24 | Infectious Disease Progress ---
Assessment and Plan (1) Acute renal failure Status: Acute Assessment and plan: Renal function significantly improved since admission. Continue to watch closely on vancomycin. Current Visit: Yes (2) Necrotizing fasciitis Status: Acute Assessment and plan: This is an extensive infection involving the scrotal area perineum and intergluteal area. He is generally feeling better, afebrile. Recommend agents: Continue current antibiotics for now and adjust once we get back final cultures. I am told patient is starting HBO therapy this afternoon. Current Visit: Yes (3) Uncontrolled diabetes mellitus Status: Acute Assessment and plan: Severely uncontrolled with an A1c of more than 15.5%. This is the main risk factor for his necrotizing fasciitis. 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 No breathing difficulties, no nausea vomiting or diarrhea. Infectious Disease Exam (PN) - Constitutional Vitals: Temp Pulse Resp BP Pulse Ox 97 F L 73 13 130/68 96 02/11/17 08:00 02/11/17 11:00 02/11/17 11:00 02/11/17 11:00 02/11/17 11:00 General appearance: normal weight, no acute distress Exam: General appearance: no acute distress - Eye Eye exam: Present: EOMI. no icterus Pupils: Present: ESTHER - ENT ENT exam: no oral exudates - Respiratory Respiratory exam: vesicular BS, no crepitations or wheezes - Cardiovascular Cardiovascular exam: regular rate and rhythm, no murmurs - GI/Abdominal GI/Abdominal exam: normal bowel sounds, soft, non-tender, no organomegaly or mass - bandage of the perineal wound - Extremities Exam Extremities exam: no edema - Skin Skin exam: no rash Results - Labs CBC & BMP: 02/11/17 05:30 02/11/17 05:30 Lab Results: I have reviewed the past 24 hour labs (Multiple organisms from wound culture, ID pending, blood cultures negative to date) Quality Measures - VTE Contraindication to Pharmacological VTE Prophylaxis: High Risk of Bleeding - Stroke Symptom Onset Unknown: No
--- NOTE | 2017-02-11 12:33 | General Surgery Progress Note ---
Assessment and Plan (1) Necrotizing fasciitis Status: Acute Assessment and plan: Necrotizing fasciitis of the perineum and left groin with blistering and obvious tissue loss. By history, this has advanced since he was seen at the [facility] emergency room last evening and he has now hyperglycemic with glucoses in the 500-600 range and blood pressure low normal. This appears to be aggressive and progressing infection, and he needs OR debridement this evening in order to get control of this serious infection. We will plan to take him to surgery tonight and open/drain the area with debridement of nonviable tissue. Dr. Carlin has discussed this with the patient and his significant other, including the fact that this will leave a significant skin defect in this area. 02/11/2017. Patient is doing well status post aggressive surgical debridement of perineal necrotizing fasciitis. His antibiotics have been adjusted by Dr. Rose, and he seems to be tolerating this well. Renal function is improving and glucose is trending downward. He is tolerating HBO. His appetite is good, pain is primarily with dressing changes and is manageable; his appetite is improving and he is having bowel movements. Our plan is to move him out of ICU possibly tomorrow. He may need minor surgical debridement as "clean up" of skin edges but overall there seems to be no progression of the necrotizing skin loss. Current Visit: Yes (2) Uncontrolled diabetes mellitus Status: Acute Assessment and plan: Type 2 diabetes uncontrolled. Appreciate hospital medicine assistance in helping us with aggressive lowering his glucose and postop management. This is a very serious and progressive infection, and we should see improvement once we can get the area drained and the necrotic tissue removed. 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 We will get pharmacy and therapeutics to help with renal dosing and watch his trends once we get the infection under control; he may need nephrology consult as well , as we do not know what his baseline renal function was pre-infection. Current Visit: Yes Subjective Patient reports: Present: pain is less, bowel movement. Absent: nausea, vomiting Exam - Constitutional Vitals: Period Temp Pulse Resp BP Sys/Herron Pulse Ox Last 24 Hr 97 F-98.9 F 66-103 11-29 90-158/68-96 95-100 General appearance: other (Patient is awake and alert, cooperative with the exam. He understands the severity of this infection. His mood is serious but not depressed.) - Respiratory Respiratory exam: Present: clear to auscultation bilaterally - Cardiovascular Cardiovascular exam: Present: RRR - GI/Abdominal GI/Abdominal exam: Present: normal bowel sounds, soft. Absent: tenderness - Anus/Rectum Anus/Rectum: other (Anal and perineal area with pink granulating tissue now present. There are 2 areas of skin necrosis present; one is at the scrotal edge superiorly and laterally. He does have minimal residual slough present over the scrotal tissue and scattered areas of desiccated fat over the wound bed , however overall his wound picture is much more optimistic than what we initially expected. There is no advancing erythema, no new induration, no blistering, and essentially no evidence of advancing necrotizing soft tissue infection.) Results - Labs CBC & BMP: 02/11/17 05:30 02/11/17 05:30 Lab Results: I have reviewed the past 24 hour labs (H&H is stable. WBC now normal. His creatinine is falling to near normal. Glucose is trending downward. Micro results noted; appreciate Dr. Rose's assistance.) Quality Measures - VTE Contraindication to Pharmacological VTE Prophylaxis: High Risk of Bleeding - Stroke Symptom Onset Unknown: No
[2017-02-11] MEDS: MEROPENEM 1,000 MG in SODIUM CHLORIDE 0.9% 100 ML IV SCH (17:19)
[2017-02-11] MEDS: VANCOMYCIN INJ 1,500 MG in SODIUM CHLORIDE 0.9% 500 ML IV SCH (17:31)
[2017-02-12] MEDS: MEROPENEM 1,000 MG in SODIUM CHLORIDE 0.9% 100 ML IV SCH ×2 (00:22→08:11)
[2017-02-12] MEDS: CLINDAMYCIN INJ 600 MG in PREMIX 1 EACH IV SCH ×2 (00:59→09:26)
[2017-02-12] MEDS: HYDROmorphone 2 MG/1 ML VIAL IV PRN ×2 (04:33→10:11)
[2017-02-12] MEDS: SODIUM ACETATE 50 MEQ in SODIUM CHLORIDE 0.45% 1,000 ML IV SCH ×2 (04:52→11:00)
[2017-02-12] MEDS: VANCOMYCIN INJ 1,500 MG in SODIUM CHLORIDE 0.9% 500 ML IV SCH (05:36)
[2017-02-12] MEDS: INSULIN LISPRO 100 UNIT/ML SUBCUT SCH ×2 (07:58→11:12)
[2017-02-12] MEDS: INSULIN NPH 100 UNIT/ML SUBCUT SCH (07:59)
[2017-02-12] MEDS: PANTOPRAZOLE 40 MG TABLET PO SCH (08:33)
[2017-02-12] MEDS: ENOXAPARIN 40 MG/0.4 ML SYRINGE SUBCUT SCH (08:33)
[2017-02-12] MEDS: DOCUSATE SODIUM 100 MG CAPSULE PO SCH (08:33)
[2017-02-12] MEDS ORDERED: INSULIN NPH 100 UNIT/ML SUBCUT ONE (09:00)
[2017-02-12] MEDS: SODIUM HYPOCHLORITE 0.25% IRRIG 473 ML BOTTLE TOP SCH (10:12)
--- NOTE | 2017-02-12 10:13 | Discharge Summary ---
Hospital Course - Hospital Course Hospital Course: Discharge summary: Discharge diagnoses: 1. Necrotizing fasciitis of the left perineum and scrotum 2. Diabetes poorly controlled Procedure: Excisional debridement of left perineum perirectal and scrotal area Surgeon Dr. Carlin I[employer] And Gl[employer] Maker Germania Christina, [facility] Brief summary: 36-year-old diabetic male who noted on Thursday a small bump in the peritoneal area or perirectal area on the left side. He is so people in the chart on Thursday but refused any admission with this area being a little more tender and larger at that time. By Thursday when he returned to [facility] this area was much more involved and he was transferred down here. We saw him here started him on antibiotics and because of the changes in the left. Rectal left gluteal perineal area would like to taken surgery. By the time he came to surgery there was involvement now of the scrotal area at this time. At this point we did an extensive debridement of this area and put him in the unit postop. He has been undergoing twice a day wound care at this point time and to my surprise the wound has done very well. There is some skin changes on the scrotal area and the small area on the perirectal area that may require some debridement. We have started him on HBO therapy at this time he seems to tolerate that fairly well without problems. The wound seems to be improving he will need some long-term care if we hope to get any improvement our closure. Dr. Rose the infectious disease doctor has seen him and has adjusted his antibiotics to flank and imipenem. So far he has tolerated things fairly well renal functions remain good hematocrit has been in the 20s at this point. He is done well enough been in the unit now several days and we will go ahead and look at sending him to [facility] for additional wound care and continued HBO therapy. Patient's diabetes was in the 600 700 range when he came in with a high A1C level. He has since had that placed under better control diet clinton and with insulin at this time. Glucoses are running about 250 at this point and he seems to be tolerating things fairly nicely without problems. We will continue to manage this and monitor her this for now and look at possibility of his diabetes being under better control at some point. We will go ahead and discharge him so that can get him to [facility] for additional wound care and HBO therapy. Goal is to get the wounds clean as possible and attempt to do some delayed closures in order to speed up healing. - Time spent with patient Time with patient DS: Greater than 30 minutes Diagnosis - Discharge Diagnosis (1) Necrotizing fasciitis Status: Chronic Specialty Discharge - Follow Up or Referrals Follow up with: Shan Carlin MD [Physician] - (We will see the patient at the LTAC at [facility]) - Speciality Discharge Instructions Surgery Instructions: 1. Must continue the wound care twice a day. 2. Must continue HBO therapy. 3. Continue all his meds from the ICU here at [facility]. Discharge Plan - Discharge Data Disposition: Disch/Xfer to [facility] Condition at Discharge: Stable Discharge Diet: diabetic diet Activity: other (Bedrest for now) Hygiene: other (May wash while in bed daily) Weight Bearing at Discharge: full weight bearing Driving: not for (2 months) Contact your physician if you experience:: fever over 101, Redness or swelling, Nausea/Vomiting, Bleeding, pain uncontrolled by pain medications Wound / Dressing Care Instructions: Wound care to the perineal scrotal area twice daily. 1. Wash the areas with Hibiclens. 2. Irrigate the wounds with 100 cc of half-strength Dakin solution. 3. Apply Dakin's wet Kerlix fluff to the wound bed. 4. Cover with fluffs and ABD pad and a OB panties - Discharge Medications No Action Insulin Aspart [NovoLOG FlexPen] 5 unit SUBCUT TID W/MEALS Insulin Detemir [Levemir FlexPen] 35 unit SUBCUT BEDTIME Carvedilol [Coreg] 3.125 mg PO BID tablet Gabapentin Cap/Tab [Neurontin Cap/Tab] 100 mg PO BEDTIME capsule Lisinopril [Prinivil] 10 mg PO DAILY tablet Simvastatin [Zocor] 20 mg PO BEDTIME tablet glipiZIDE [Glipizide Xl] 10 mg PO DAILY Aspirin EC Tab 81 mg PO DAILY tablet - Follow Up or Referral - Forms/Instructions Exam - Constitutional Vitals: Period Temp Pulse Resp BP Sys/Herron Pulse Ox Last 24 Hr 98.2 F-98.9 F 66-98 12-20 122-165/61-104 95-99 General appearance: mild distress - Head Head exam: Present: normal inspection - ENT ENT exam: Present: normal exam - Neck Neck exam: Present: normal inspection - Respiratory Respiratory exam: Present: rales - Cardiovascular Cardiovascular exam: Present: regular rate and rhythm - GI/Abdominal GI/Abdominal exam: Present: hypoactive bowel sounds, soft - Extremities Exam Extremities exam: Present: normal inspection - Back Exam Back exam: Present: normal inspection - Neurological Exam Neurological exam: Present: alert, oriented X3, CN II-XII intact - Psychiatric Psychiatric exam: Present: normal affect, normal mood, anxious - Skin Skin exam: Present: normal color, warm, dry Discharge Results Procedures and tests throughout hospitalization: Pending Orders 02/09/17 15:40 Wound Culture Stat 02/09/17 15:58 Blood Culture Stat 02/09/17 17:50 Abscess Culture Routine Anaerobic Culture Routine Tissue (Biopsy) Culture and GS Routine 02/12/17 17:30 Vancomycin,Trough Timed Labs on day of discharge: Labs from last 24 hours 02/12/17 02/11/17 02/11/17 07:54 22:18 19:21 POC Glucose 236 H 265 H 473 H 02/11/17 11:48 POC Glucose 320 H Preliminary micro results at discharge 02/09/17 17:50 Tissue Culture - Preliminary Buttock - Left Escherichia coli ESBL Gram Positive Cocci Microstrep plus panel 1 Gram Positive Cocci#2 Microstrep plus panel 1#2 02/09/17 17:50 Abscess Culture - Preliminary Buttock - Left Gram Positive Cocci Microstrep plus panel 1 Gram Positive Cocci#2 Microstrep plus panel 1#2 02/09/17 15:40 Wound Culture - Preliminary Scrotum Escherichia coli ESBL Gram Positive Cocci Microstrep plus panel 1 Gram Positive Cocci#2 Microstrep plus panel 1#2 02/09/17 15:58 Blood Culture - Preliminary Blood No growth at 1 day 02/09/17 15:58 Blood Culture - Preliminary Blood No growth at 1 day DS: Provider Date of admission: 02/09/17 11:57 Primary care physician: Víctor Gardner MD Attending physician on admission: Shan Carlin MD Consults: 02/09/17 13:58 Consult to Physician [CONS] Routine Comment: Consulting Provider: Bradley Ayala Consulting Provider Notified: Yes Consult to Specialist Group: Hospitalist When should Consulting Provider be notified: Now Person Notified: ASHELY Huerta Date Notified: 02/09/17 Time Notified: 14:20 02/09/17 15:48 Consult to Anesthesiology [CONS] Routine Consulting Provider: Reason for Anesthesiology: Pre-op Clearance 02/09/17 16:22 Consult to Pharmacy [CONS] Routine Reason for Pharmacy Consult: Adjust Meds Renal Funct 02/09/17 18:45 Consult to Wound Care - [place] [CONS] Routine Reason for Wound Care: Wound Care Management Consult Comment: scrotal/perineal wound 02/09/17 18:55 Consult to Physician [CONS] Routine Comment: Necrotizing fasciitis of the perineum scrotum Consulting Provider: Stephany Souza Consulting Provider Notified: Yes When should Consulting Provider be notified: In am Consult to Specialist Group: Infectious Disease Person Notified: CINDY Date Notified: 02/10/17 Time Notified: 08:30 02/09/17 18:58 Consult to Physician [CONS] Routine Comment: Consulting Provider: Ben Evans Consulting Provider Notified: Yes Consult to Specialist Group: Nephrology When should Consulting Provider be notified: In am Person Notified: HELGA Date Notified: 02/10/17 Time Notified: 08:35 Consult Notification Comment: Diabetic with renal insufficiency and necrotizing fasciitis. Follow with us and help us manage antibiotic 02/11/17 13:41 Consult to Case Mgmt/Social Srvs [CONS] Routine Reason for Case Mgmt/Social Srvs: Discharge Planning Consult Comment: Cecilia for wound care and hyperbarics Discharging clinician: Shan Carlin MD Expected date of discharge: 02/12/17
[2017-02-12] MEDS ORDERED: LISINOPRIL 10 MG TABLET PO SCH (10:30)
[2017-02-12] MEDS ORDERED: CARVEDILOL 3.125 MG TABLET PO SCH (10:30)
--- NOTE | 2017-02-12 11:36 | Hospitalist Progress Note ---
Assessment and Plan (1) Acute renal failure Status: Acute Assessment and plan: 1)KAREN- improving with IVF. Continue with NS with acetate at 150 for now and watch creatinine. 2)uncontrolled DM- NPH increased to 35U BID. with SSI 3)HTN- restart home meds. 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 His glucose remains uncontrolled and I have increased his NPH to 35U BID. Also I have restarted his home antiHTN meds- lisinopril, coreg. Exam - Constitutional Vitals: Period Temp Pulse Resp BP Sys/Herron Pulse Ox Last 24 Hr 98.2 F-98.9 F 66-98 12-20 122-179/61-114 95-100 General appearance: normal weight - Respiratory Respiratory exam: Present: clear to auscultation bilaterally - Cardiovascular Cardiovascular exam: Present: regular rate and rhythm Results - Labs CBC & BMP: 02/11/17 05:30 02/11/17 05:30 Lab Results: I have reviewed the past 24 hour labs Quality Measures - VTE Contraindication to Pharmacological VTE Prophylaxis: High Risk of Bleeding - Stroke Symptom Onset Unknown: No Specialty Discharge - Follow Up or Referrals Follow up with: Shan Carlin MD [Physician] - (We will see the patient at the LTAC at [facility])
[2017-02-12 13:37] VITALS: BP 177/94
--- NOTE | 2017-02-12 14:02 | Nephrology Progress Note ---
Nephrology - PN: Subj Interval history: Patient denies shortness of breath. Review of systems GI denies nausea or vomiting Physical exam general the patient is in no acute distress, he has no pitting edema Assessment/plan 1. Acute renal failure-patient's creatinine is improving 2. Metabolic acidosis-patient's bicarb is 18 we will start him on some sodium bicarbonate p.o. 3. Necrotizing fasciitis-we will continue antibiotics 4. Diabetes mellitus Exam (PN)-Nephrology - Vital Signs Vital signs: Period Temp Pulse Resp BP Sys/Herron Pulse Ox Last 24 Hr 98.2 F-98.9 F 66-98 12-20 122-179/61-114 95-100 - Lab 02/11/17 05:30 02/11/17 05:30 Most recent lab results Calcium 6.6 MG/DL (8.5-10.1) L 02/11/17 05:30 Phosphorus 2.9 MG/DL (2.5-4.9) 02/10/17 06:33 Magnesium 2.3 MG/DL (1.8-2.4) 02/11/17 05:30 Assessment and Plan (1) Acute renal failure Status: Acute Assessment and plan: This patient's creatinine is improving with IV fluids, I suspect he had an ATN injury related to his necrotizing fasciitis as well as his use of nonsteroidal anti-inflammatory medication and DWIGHT inhibition in the face of this infection. I agree with IV fluids ordered however I will adjust them to give him some bicarbonate for his metabolic acidosis. Current Visit: Yes (2) Metabolic acidosis Status: Acute Current Visit: Yes (3) Necrotizing fasciitis Status: Chronic Current Visit: Yes (4) Diabetes Status: Acute Current Visit: No Qualifiers: Diabetes mellitus type: type 2 (5) Hypertension Status: Acute Current Visit: No Qualifiers: Hypertension type: essential hypertension Qualified Code(s): I10 - Essential (primary) hypertension Specialty Discharge - Follow Up or Referrals Follow up with: Shan Carlin MD [Physician] - (We will see the patient at the LTAC at [facility])
--- NOTE | 2017-02-12 14:20 | Infectious Disease Progress ---
Assessment and Plan (1) Acute renal failure Status: Acute Assessment and plan: Renal function significantly improved since admission. Continue to watch closely on vancomycin. (2) Necrotizing fasciitis Status: Chronic Assessment and plan: This is an extensive infection involving the scrotal area perineum and intergluteal area. He is generally feeling better, afebrile. Not surprisingly the infection is polymicrobial including strep pyogenes and Prevotella. Recommend agents: Continue meropenem and discontinue vancomycin. Patient is being transferred to [facility] to continue aggressive wound care and HBO treatments. (3) Uncontrolled diabetes mellitus Status: Acute Assessment and plan: Severely uncontrolled with an A1c of more than 15.5%. This is the main risk factor for his necrotizing fasciitis. 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 He had no specific complaints with less pain to the perineal area. He has not had fever. Tolerating antibiotics without nausea vomiting or diarrhea. Infectious Disease Exam (PN) - Constitutional Vitals: Temp Pulse Resp BP Pulse Ox 98.5 F 85 12 177/94 99 02/12/17 12:00 02/12/17 13:00 02/12/17 10:00 02/12/17 13:00 02/12/17 11:00 General appearance: normal weight Exam: General appearance: no acute distress - Eye Eye exam: Present: EOMI. no icterus Pupils: Present: ESTHER - ENT ENT exam: no oral exudates - Respiratory Respiratory exam: vesicular BS, no crepitations or wheezes - Cardiovascular Cardiovascular exam: regular rate and rhythm, no murmurs - GI/Abdominal GI/Abdominal exam: normal bowel sounds, soft, non-tender, no organomegaly or mass - bandage of the perineal wound - Extremities Exam Extremities exam: no edema - Skin Skin exam: no rash Results - Labs CBC & BMP: 02/11/17 05:30 02/11/17 05:30 Lab Results: I have reviewed the past 24 hour labs (Multiple organisms wound including ESBL E. coli, group B strep pyogenes, group B strep agalactiae, and Prevotella) Quality Measures - VTE Contraindication to Pharmacological VTE Prophylaxis: High Risk of Bleeding - Stroke Symptom Onset Unknown: No Specialty Discharge - Follow Up or Referrals Follow up with: Shan Carlin MD [Physician] - (We will see the patient at the AC at [facility])
[2017-02-12] MEDS ORDERED: INSULIN NPH 100 UNIT/ML SUBCUT SCH (16:30)
[2017-02-12] MEDS ORDERED: SODIUM BICARBONATE 650 MG TABLET PO SCH (21:00)
--- NOTE | 2017-02-20 08:11 | Physician Query Form ---
CLICK EDIT DOCUMENT TO SELECT QUERY ANSWER --> OK --> SIGN Megan Marc RN Clinical Numerical Analysis Group Manager W) [phone] (f) [phone] [email or web address] PROVIDERS: Make your selection(s) from the choices in EACH section by typing an "x" and enter comments in the comment section. Please use your independent medical judgment in providing your response. This request does not imply that any particular answer is desired or expected. CLINICAL INDICATORS: (Providers should not edit this section) Based on documentation of "acute renal failure. This patient's creatinine is improving with IV fluids, I suspect he had an ATN injury related to his necrotizing fasciitis as well as his use of nonsteroidal anti-inflammatory medication and DWIGHT inhibition in the face of this infection". Please clarify the diagnosis of ATN. Diagnosis: ATN Please clarify the following: ( ) The above diagnosis was monitored, evaluated, and/or treated and is a confirmed diagnosis ( ) The above diagnosis was ruled out ( ) Other, please specify: ( ) Clinically unable to determine COMMENTS: PLEASE ALSO DOCUMENT RESPONSE IN PROGRESS NOTES AND/OR DISCHARGE SUMMARY Use of terms such as suspected, likely, or probable (associated with a specific diagnosis that is being evaluated, monitored, or treated as if it exists) are acceptable and can be restated in the discharge summary if not ruled out. MTDD
--- NOTE | 2017-02-20 12:47 | Physician Query Form ---
CLICK EDIT DOCUMENT TO SELECT QUERY ANSWER --> OK --> SIGN Megan Marc RN Clinical Erp Technical Lead W) [phone] (f) [phone] [email or web address] PROVIDERS: Make your selection(s) from the choices in EACH section by typing an "x" and enter comments in the comment section. Please use your independent medical judgment in providing your response. This request does not imply that any particular answer is desired or expected. CLINICAL INDICATORS: (Providers should not edit this section) Based on documentation of "acute renal failure. This patient's creatinine is improving with IV fluids, I suspect he had an ATN injury related to his necrotizing fasciitis as well as his use of nonsteroidal anti-inflammatory medication and DWIGHT inhibition in the face of this infection". Diagnosis: ATN Please clarify the following: ( ) The above diagnosis was monitored, evaluated, and/or treated and is a confirmed diagnosis ( ) The above diagnosis was ruled out ( x) Other, please specify: see below comments ( ) Clinically unable to determine COMMENTS: I do not believe I ever saw Mr. Gino Rivas, I think this may be attached to the wrong chart. PLEASE ALSO DOCUMENT RESPONSE IN PROGRESS NOTES AND/OR DISCHARGE SUMMARY Use of terms such as suspected, likely, or probable (associated with a specific diagnosis that is being evaluated, monitored, or treated as if it exists) are acceptable and can be restated in the discharge summary if not ruled out. MTDD
--- NOTE | 2017-02-24 12:56 | Physician Query Form ---
CLICK EDIT DOCUMENT TO SELECT QUERY ANSWER --> OK --> SIGN Megan Marc RN Clinical Track Liner Operator W) [phone] (f) [phone] [email or web address]: Make your selection(s) from the choices in EACH section by typing an "x" and enter comments in the comment section. Please use your independent medical judgment in providing your response. This request does not imply that any particular answer is desired or expected. CLINICAL INDICATORS: (Providers should not edit this section) The below diagnosis was documented in the record, but is not consistently noted in subsequent documentation. Diagnosis: ATN Based on documentation in your 02/10/17 consult note and 02/12/17 progress note of "acute renal failure. This patient's creatinine is improving with IV fluids, I suspect he had an ATN injury related to his necrotizing fasciitis as well as his use of nonsteroidal anti-inflammatory medication and DWIGHT inhibition in the face of this infection". Please clarify the following: ( ) The above diagnosis was monitored, evaluated, and/or treated and is a confirmed diagnosis ( ) The above diagnosis was ruled out ( ) Other, please specify: ( ) Clinically unable to determine COMMENTS: PLEASE ALSO DOCUMENT RESPONSE IN PROGRESS NOTES AND/OR DISCHARGE SUMMARY Use of terms such as suspected, likely, or probable (associated with a specific diagnosis that is being evaluated, monitored, or treated as if it exists) are acceptable and can be restated in the discharge summary if not ruled out. MTDD
--- NOTE | 2017-02-26 08:56 | Physician Query Form ---
CLICK EDIT DOCUMENT TO SELECT QUERY ANSWER --> OK --> SIGN Megan Marc RN Clinical Golf Player Assistant W) [phone] (f) [phone] [email or web address]: Make your selection(s) from the choices in EACH section by typing an "x" and enter comments in the comment section. Please use your independent medical judgment in providing your response. This request does not imply that any particular answer is desired or expected. CLINICAL INDICATORS: (Providers should not edit this section) Based on documentation of "acute renal failure. This patient's creatinine is improving with IV fluids, I suspect he had an ATN injury related to his necrotizing fasciitis as well as his use of nonsteroidal anti-inflammatory medication and DWIGHT inhibition in the face of this infection". Diagnosis: ATN Please clarify the following: ( ) The above diagnosis (ATN) was monitored, evaluated, and/or treated and is a confirmed diagnosis ( ) The above diagnosis (ATN) was ruled out ( ) Other, please specify: ( ) Clinically unable to determine COMMENTS: I did not see this patient based on the EMR PLEASE ALSO DOCUMENT RESPONSE IN PROGRESS NOTES AND/OR DISCHARGE SUMMARY Use of terms such as suspected, likely, or probable (associated with a specific diagnosis that is being evaluated, monitored, or treated as if it exists) are acceptable and can be restated in the discharge summary if not ruled out. MTDD
--- NOTE | 2017-02-26 15:12 | Physician Query Form ---
CLICK EDIT DOCUMENT TO SELECT QUERY ANSWER --> OK --> SIGN Megan Marc RN Clinical Stock Control Clerk W) [phone] (f) [phone] [email or web address]: Make your selection(s) from the choices in EACH section by typing an "x" and enter comments in the comment section. Please use your independent medical judgment in providing your response. This request does not imply that any particular answer is desired or expected. CLINICAL INDICATORS: (Providers should not edit this section) Based on documentation of "acute renal failure. This patient's creatinine is improving with IV fluids, I suspect he had an ATN injury related to his necrotizing fasciitis as well as his use of nonsteroidal anti-inflammatory medication and DWIGHT inhibition in the face of this infection". Diagnosis: ATN Please clarify the following: ( ) The above diagnosis was (ATN) monitored, evaluated, and/or treated and is a confirmed diagnosis ( ) The above diagnosis (ATN) was ruled out ( ) Other, please specify: ( ) Clinically unable to determine COMMENTS: PLEASE ALSO DOCUMENT RESPONSE IN PROGRESS NOTES AND/OR DISCHARGE SUMMARY Use of terms such as suspected, likely, or probable (associated with a specific diagnosis that is being evaluated, monitored, or treated as if it exists) are acceptable and can be restated in the discharge summary if not ruled out. MTDD
== END 2017-02-12 13:00 | DRG 463 ==
LOC: N.5E 12:19 → N.ICU 19:30
PROVIDERS: ADMIT Specialist; ATTEND Specialist